=== PATIENT | male | born 1940 | race Caucasian/White ===

== ENCOUNTER 2016-10-30 13:14 | Inpatient (IN) | payer OTHER, MEDICARE ==
[~2016-10-30] VITALS: Ht 180.3 cm; Wt 97.2 kg
--- NOTE | 2016-10-30 13:15 | NUR ---
IRINEO FROM HOME FOR CP/EPIGASTRIC PAIN. PT STATES HE WAS WALKING IN THE [place] 10AM TODAY WHEN HE DEVELOPED 6/10 SUBSTERNAL CHEST PAIN. PT STATES HE'S BEEN HAVING "ASPIRIN STOMACHACHES" AND TOOK ROLAIDS. PAIN THEN RESOLVED. A COUPLE HOURS LATER PT WENT TO THE STORE AND PAIN RESUMED. 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 SEES A STAFF RADIATION THERAPIST AT [facility]
--- NOTE | 2016-10-30 13:29 | ED CARDIAC/CP/PALPITATIONS ---
See Addendum History of Present Illness General Chief Complaint: Chest Pain Stated Complaint: CHEST PAIN Source: patient, old records Exam Limitations: no limitations Vital Signs & Intake/Output Vital Signs & Intake/Output Vital Signs Date Time Temp Pulse Resp B/P Pulse O2 O2 Flow FiO2 Ox Delivery Rate 10/30 1546 99.4 98 20 141/71 96 Room Air 10/30 1357 98 Nasal 4.0L Cannula 10/30 1335 98.3 10/30 1315 74 16 141/75 94 Room Air Allergies Coded Allergies: No Known Allergies (10/30/16) Reconcile Medications Amlodipine (Norvasc) 2.5 MG TABLET 1 TAB PO DAILY BP (Reported) Aspirin (Ecotrin*) 325 MG TABLET.DR 2 TAB PO DAILY HEART/BLOOD/PAIN (Reported ) Aspirin (Aspirin*) 325 MG TABLET 1 TAB PO DAILY HEART/BLOOD/PAIN (Reported) Atorvastatin Calcium (Lipitor) 40 MG TABLET 1 TAB PO DAILY CHOLESTEROL ( Reported) Cetirizine HCl (Zyrtec) 10 MG TABLET 1 TAB PO PRN ALLERGIES (Reported) Glucosamine HCl/Chondr Genao A Na (Glucosamine-Chondroitin Liq) 1,500 MG-1,200 MG/ 30 ML LIQUID 1 CAP PO BID SUPPLEMENT (Reported) Losartan Potassium (Cozaar) 25 MG TABLET 1 TAB PO DAILY BP (Reported) Metoprolol Succ XL (Toprol XL) 25 MG TAB 1 TAB PO DAILY HEART/BP (Reported) Multivitamin (Multi-Day Vitamins) 1 EACH TABLET 1 TAB PO DAILY SUPPLEMENT ( Reported) Nitroglycerin (Nitrostat) (Unknown Strength) TAB.SUBL (Unknown Dose) SL AD PRN CHEST PAIN (Reported) 1st sign of attack; may repeat every 5 minutes until relief; if pain persists after 3 tablets in 15 minutes, prompt medical att Ubidecarenone (Co Q-10) 100 MG CAPSULE 1 CAP PO DAILY SUPPLEMENT (Reported) Vit A,C & E/Lutein/Minerals (Ocuvite With Lutein Tablet) 1,000-60-2 TABLET 1 TAB PO DAILY SUPPLEMENT (Reported) Triage Nurses Notes Reviewed? yes HPI: Patient presents for evaluation of substernal and epigastric pain. Patient states that he has had abdominal pain from the epigastric region to the lower abdomen for almost 2 weeks now. He states it is a constant aching discomfort. He states he began having pain while walking in the [place]. He took Rolaids and drank water without much relief. He states it worsened at a grocery store and then worse still at home. He did crunches at the gym yesterday and today but this didn't seem to have impacted on his pain. He has had episodic dyspnea and diaphoresis but no diarrhea or dysuria. He states he takes "a lot of aspirin" for ankle leg and hip pains. Past History Medical History Any Pertinent Medical History? see below for history Surgical History Surgical History: non-contributory Psychosocial History Illicit Drug Use: denies illicit drug use Family History Hx Contributory? No Review of Systems Review of Systems Constitutional: Reports: no symptoms. EENTM: Reports: no symptoms. Respiratory: Reports: no symptoms. Cardiovascular: Reports: no symptoms. GI: Reports: see HPI. Genitourinary: Reports: no symptoms. Musculoskeletal: Reports: no symptoms. Skin: Reports: no symptoms. Neurological/Psychological: Reports: no symptoms. Hematologic/Endocrine: Reports: no symptoms. Immunologic/Allergic: Reports: no symptoms. All Other Systems: Reviewed and Negative Physical Exam Physical Exam Cardiovascular: see below Comments: Gen.: Well-nourished, well-developed, no acute respiratory distress. Head: Normocephalic, atraumatic. Eyes: Normal inspection bilaterally Ears: Normal inspection bilaterally Nose: Normal inspection Throat/mouth : Moist mucosa Neck: Supple, full range of motion, no goiter Heart: Regular rate and rhythm, no murmurs rubs or gallops Lungs: Clear to auscultation bilaterally with normal air entry Chest: Nontender Back: Normal range of motion Abdomen: Soft, diffuse severe tenderness without rebound or guarding, nondistended, normal bowel sounds Extremities: Normal range of motion grossly, equal radial pulses, no cyanosis clubbing or edema Neurologic: Cranial nerves grossly intact, speech is clear Skin: warm and dry Psychiatric: Calm, cooperative, no apparent delusions or hallucinations Core Measures ACS in differential dx? No Severe Sepsis Present: No Septic Shock Present: No Progress Differential Diagnosis: pancreatitis, gastritis, peptic ulcer disease, small bowel obstruction, perforated viscus, diverticulitis Plan of Care: Orders Procedure Date/time Status Nothing by Mouth 10/30 D Active Add-on Test (ER Only) 10/30 1355 Active LIPASE 10/30 1348 Complete URINALYSIS 10/[address] ABD & PELVIS ANGIOGRAM 10/30 1346 Active TROPONIN LEVEL 10/30 1345 Complete COMPREHENSIVE METABOLIC PANEL 10/30 1345 Complete CBC WITHOUT DIFFERENTIAL 10/30 134 Complete EKG 10/30 1315 Active Laboratory Tests 10/30/16 1348: Anion Gap 8, Estimated GFR > 60, BUN/Creatinine Ratio 20.0, Glucose 112 H, Calcium 9.6, Total Bilirubin 0.8, AST 27, ALT 38, Alkaline Phosphatase 89, Troponin I < 0.01, Total Protein 6.7, Albumin 3.7, Globulin 3.0, Albumin/ Globulin Ratio 1.2, Lipase 345 H, CBC w Diff NO MAN DIFF REQ, RBC 4.92, MCV 94.5 H, MCH 32.0 H, RDW 12.8, MPV 6.8 L, Gran % 67.0, Lymphocytes % 27.9, Monocytes % 2.2, Eosinophils % 2.2, Basophils % 0.7, Absolute Granulocytes 3.8, Absolute Lymphocytes 1.6, Absolute Monocytes 0.1 L, Absolute Eosinophils 0.1, Absolute Basophils 0, PUBS MCHC 33.9 10/30/16 1346: Lipase Cancelled, CBC w Diff Cancelled, WBC Cancelled, RBC Cancelled, Hgb Cancelled, Hct Cancelled, MCV Cancelled, MCH Cancelled, RDW Cancelled, Plt Count Cancelled, MPV Cancelled, PUBS MCHC Cancelled Initial ED EKG: NSR, rate (69), LBBB Comments: 10/30/2016 3:46:[address]'s ct scan reveals 1) aorta normal, dilated esophagus filled with fluid, stomach fluid, mesenteric congestion and omental caking, small free air. 10/30/2016 4:08:45 PM surgery is being paged and I have updated Javier on his test results. he has no specific requests at this time. 10/30/2016 4:29:18 PM patient's case discussed with Dr. Hamilton will evaluate the patient in the emergency department shortly. 10/30/2016 6:01:32 PM patient has been evaluated by Dr. Hamilton, an NG tube will be placed and the patient will be admitted for clinical monitoring. Departure Departure Disposition: HOME OR SELF CARE Condition: Stable Clinical Impression Primary Impression: Perforated viscus Referrals: UNKNOWN Departure Forms: Customer Survey General Discharge Information Admission Note Spoke With: EDUARDA MARTINEZ,ARIA Harvey Documentation of Exam: Documentation of any treatments & extenuating circumstances including Concerns Regarding Discharge (functional status, medication knowledge or non-compliance, living conditions, etc.) that warrant an admission rather than observation: Patient has a perforated viscus of unclear etiology. He is at very high risk of peritonitis sepsis septic shock and . He now requires careful clinical monitoring of abdominal exam and vital signs. He requires IV antibiotic prophylaxis to prevent secondary peritonitis. He needs to be kept nothing by mouth to decompress and rest the GI tract. He will be at risk of dehydration if IV fluids are not provided. He therefore cannot be treated as an outpatient and requires hospitalization for multiple day stay. If his clinical course deteriorates surgical intervention should be considered. Critical Care Note Critical Care Note Critical Care Time: 30-74 min
--- NOTE | 2016-10-30 13:56 | NUR ---
PT STATES PAIN IS MORE FROM HIS STERNUM DOWN TO HIS BELT LINE, NOT SPECIFICALLY IN CHEST AREA
[2016-10-30 13:57] LABS: ABSOLUTE BASOPHIL COUNT 0 /CUMM (0.0-0.2); ABSOLUTE EOSINOPHIL COUNT 0.1 /CUMM (0.0-0.7); ABSOLUTE GRANULOCYTE CT 3.8 /CUMM (1.4-6.5); ABSOLUTE LYMPH COUNT 1.6 /CUMM (1.2-3.4); ABSOLUTE MONOCYTE COUNT 0.1 /CUMM (0.10-0.60); BASOPHIL % 0.7 % (0.0-2.0); EOSINOPHIL % 2.2 % (0-5); HEMATOCRIT 46.5 % (42-52); MEAN CORPUSCULAR HGB CONC 33.9 G/DL (33.0-37.0); MEAN CORPUSCULAR VOLUME 94.5 FL (80.0-94.0); MEAN PLATELET VOLUME 6.8 FL (7.4-10.4); PLATELET COUNT 218 /CUMM (130-400); RBC DISTRIBUTION WIDTH 12.8 % (11.5-14.5); RED BLOOD CELL CT 4.92 /CUMM (4.70-6.10); WHITE BLOOD CELL COUNT 5.7 /CUMM (4.8-10.8)
--- NOTE | 2016-10-30 15:09 | NUR ---
PT AT CT SCAN
--- NOTE | 2016-10-30 15:41 | NUR ---
AWAITING CT RESULTS. PT MADE AWARE. ADVISED TO STAY NPO AT THIS TIME
--- NOTE | 2016-10-30 16:48 | CT SCAN REPORT ---
EXAMINATION: CT ANGIOGRAM CHEST, ABDOMEN, AND PELVIS CLINICAL INFORMATION: 75-year-old male patient with lower substernal chest pain and history of coronary artery disease. COMPARISON: None. TECHNIQUE: Multiple axial images were obtained through the chest after the administration of 50 mL of Optiray 320 intravenous contrast. Coronal and sagittal reformats obtained at the acquisition workstation. DLP: 1054.70 mGy-cm. FINDINGS: VASCULAR: The thoracic aorta and abdominal aorta are normal in caliber. There is no evidence of dissection. The ascending aorta measures 3.4 cm in diameter. The left vertebral artery arises separately from the aortic arch. Otherwise branching is conventional. There is no apparent pulmonary embolism. The SMA is patent although there is a calcific plaque at its origin. Both single renal arteries are patent. The ROB is patent. Although this study was obtained in the arterial phase of the injection, there is early filling of the portal venous system. There could well be intraluminal thrombus formation in the superior mesenteric vein starting at the junction with the splenic vein. The intrahepatic portal veins are not well opacified and may be thrombosed. Doppler examination of the portal venous system would be able to evaluate this possibility. NONVASCULAR: Mechanical Equipment Test Engineer view demonstrates a tubular air-filled viscus in the mid abdomen that corresponds to an abnormal transverse colon. Subsegmental areas of atelectasis involve both lower lobes. The remainder of the lung salcedo is clear. There is no pleural effusion. The heart is normal in size. There is abnormal dilatation of the entire esophagus which distally is entirely fluid filled. The cause for this apparent obstruction is not apparent. The heart is normal in size. There is no adenopathy in the mediastinum or either hilar region. There is no lymphadenopathy in either axilla. Liver is normal in size and contour. However, the hepatogram is mildly heterogeneous. This could be secondary to the presumed portal vein thrombosis. No focal masses are seen. The gallbladder is normal. There are bubbles of free air in the gallbladder fossa. The pancreas is normal. The spleen is not enlarged. Both adrenal glands and both kidneys are normal. A 1.7 cm diameter cortical cyst is seen in the midportion of the left kidney. There is no perinephric stranding. Of significance is small volume ascites and bubbles of free air in the upper abdomen. With regard to the gastrointestinal tract, the transverse colon is tubular and strictured with wall thickening. A segment of the sigmoid colon is also thickened and relatively strictured with adjacent edema. Series 601, image 38. The ascending and descending colon are collapsed but demonstrate some mucosal enhancement. In addition, the gastric antrum is collapsed and there is mucosal enhancement. The transverse mesocolon is edematous. There is edema or infiltration of the greater omentum. The actual source of the observed free intraperitoneal air is not readily apparent. There is generalized edema of the small intestine and the mesentery which could be related to the possible partial thrombosis of the portal venous circulation. It is difficult to localize the appendix. Bladder is normal. There is enlargement of the central zone of the prostate gland. Multilevel degenerative disc disease is present. IMPRESSION: 1. The free intraperitoneal air implies perforated viscus. Low volume ascites. 2. Signs of colitis with skip areas of more severe involvement. (Transverse and sigmoid colon). 3. Abnormal gastric antrum with lack of distensibility and edema of the wall. 4. Edematous small bowel mesentery and greater omentum. Peritoneal implants may be present. Series 2, image 455. 5. Abnormal dilatation of the esophagus from thoracic inlet to the GE junction. There is fluid and air distention. Question etiology. 6. Findings that would suggest partial portal vein thrombosis. 7. Normal aorta. Raw data will be sent to the 3-D lab for further processing and an addendum will be dictated to this report. This critical result was discussed with Dr. Jai Banuelos at 3:42 p.m. on October 30 and it was ascertained that the content and urgency of the report was understood at the time of direct communication.
[2016-10-30] MEDS ORDERED: COZAAR25 M1 PO (17:12)
[2016-10-30] MEDS ORDERED: NORVASC2.5 M1 PO (17:12)
[2016-10-30] MEDS ORDERED: LIPITOR40 M1 PO (17:12)
[2016-10-30] MEDS ORDERED: TOPROL XL25 M1 PO (17:12)
[2016-10-30] MEDS ORDERED: MULTI-DAY VITA1 EACH PO (17:14)
[2016-10-30] MEDS ORDERED: GLUCOSAMINE-CH480 ML PO (17:14)
[2016-10-30] MEDS ORDERED: OCUVITE WITH L1 EACH PO (17:14)
[2016-10-30] MEDS ORDERED: ASPIRIN EC325 M2 PO (17:16)
[2016-10-30] MEDS ORDERED: ASPIRIN325 M2 PO (17:16)
[2016-10-30] MEDS ORDERED: CO Q-10100 MG PO (17:17)
[2016-10-30] MEDS ORDERED: ZYRTEC10 M3 PO (17:17)
[2016-10-30] MEDS ORDERED: NITROSTAT0.4 M1 SL (17:18)
--- NOTE | 2016-10-30 18:00 | NUR ---
NGT INSERTED BY PA STUDENT PER DR. MUSA'S VERBAL ORDER. 250ML THIN GREEN GASTRIC OUTPUT. PT TOLERATED PROCEDURE WELL
--- NOTE | 2016-10-30 19:02 | History & Physical Pre-Op ---
General Information and HPI History of Present Illness: CC: abdominal pain HPI: 75-year-old nondiabetic nonsmoker very active exercises regularly, earlier today had sudden onset of upper abdominal pain he was nauseous lady clammy felt dizzy pain was worse on movement constant didn't radiate to his back he wasn't exerting at the time in particular came to the ER imaging was done showing free air surgical consult was called. 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 Actually he thought this was an aspirin stomachache, , which he sometimes gets "you know when you take it on an empty stomach." No family history of GI cancer no recent weight loss or changes in bowel habits or appetite, he's followed by [facility] but no recent heart issues he says his last echo was very normal, denies any bleeding per rectum or per vomiting. I've reviewed the [facility]. No history of GERD, PUD, bleeding problems, or issues with anesthesia. Family history negative for diabetes or cancer, surgical history includes radical hernia repair with mesh. Allergies/Medications Allergies: Coded Allergies: No Known Allergies (10/30/16) Home Med list Amlodipine (Norvasc) 2.5 MG TABLET 1 TAB PO DAILY BP (Reported) Aspirin (Ecotrin*) 325 MG TABLET.DR 2 TAB PO DAILY HEART/BLOOD/PAIN (Reported ) Aspirin (Aspirin*) 325 MG TABLET 1 TAB PO DAILY HEART/BLOOD/PAIN (Reported) Atorvastatin Calcium (Lipitor) 40 MG TABLET 1 TAB PO DAILY CHOLESTEROL ( Reported) Cetirizine HCl (Zyrtec) 10 MG TABLET 1 TAB PO PRN ALLERGIES (Reported) Glucosamine HCl/Chondr Genao A Na (Glucosamine-Chondroitin Liq) 1,500 MG-1,200 MG/ 30 ML LIQUID 1 CAP PO BID SUPPLEMENT (Reported) Losartan Potassium (Cozaar) 25 MG TABLET 1 TAB PO DAILY BP (Reported) Metoprolol Succ XL (Toprol XL) 25 MG TAB 1 TAB PO DAILY HEART/BP (Reported) Multivitamin (Multi-Day Vitamins) 1 EACH TABLET 1 TAB PO DAILY SUPPLEMENT ( Reported) Nitroglycerin (Nitrostat) (Unknown Strength) TAB.SUBL (Unknown Dose) SL AD PRN CHEST PAIN (Reported) 1st sign of attack; may repeat every 5 minutes until relief; if pain persists after 3 tablets in 15 minutes, prompt medical att Ubidecarenone (Co Q-10) 100 MG CAPSULE 1 CAP PO DAILY SUPPLEMENT (Reported) Vit A,C & E/Lutein/Minerals (Ocuvite With Lutein Tablet) 1,000-60-2 TABLET 1 TAB PO DAILY SUPPLEMENT (Reported) Past History Surgical History Pertinent Surgical History: non-contributory Past Family/Social History Psychosocial History ETOH Use: occasional use Illicit Drug Use: denies illicit drug use Review of Systems Review of Systems: Constitutional: No fever, sweats or weight loss ENMT: No sore throat Cardiovascular: No chest pain, palpitations or leg swelling Respiratory: No shortness of breath, cough, or sputum or dyspnea on exertion GI: No GERD or bleeding per rectum : No dysuria or hematuria Musculoskeletal: No new muscle weakness, bone or joint pain Skin / Breast: No jaundice, rashes or itching Psychiatric: No history of drug or alcohol abuse no depression or anxiety Hematologic / lymphatic system: No problems with excessive bleeding, bruising, or blood clots Exam & Diagnostic Data Last 24 Hrs of Vital Signs/I&O I reviewed Vital Signs Date Time Temp Pulse Resp B/P Pulse O2 O2 Flow FiO2 Ox Delivery Rate 10/30 1546 99.4 98 20 141/71 96 Room Air 10/30 1357 98 Nasal 4.0L Cannula 10/30 1335 98.3 10/30 1315 74 16 141/75 94 Room Air I reviewed Intake & Output 10/30 1600 10/30 0800 10/30 0000 Intake Total Output Total Balance Patient 210 lb Weight Physical Exam: Constitutional: pleasant, no acute distress, conversant Eyes: sclera anicteric ENMT: ears and nose atraumatic, moist mucous membranes, good dentition, no lip lesions Neck: Supple, trachea is midline, no cervical or supraclavicular adenopathy and no palpable thyromegaly Cardiovascular: S1, S2, no murmurs, no peripheral edema Respiratory: clear to auscultation with normal respiratory effort and no intercostal retractions GI: abdomen soft, nontender, slightly distended, no palpable hepatosplenomegaly Extremities / lymphatics: symmetrically warm, free range of motion no peripheral edema, no cervical, supraclavicular, axillary, or inguinal adenopathy Musculoskeletal: Normal gait and station, no digital cyanosis, good muscle strength and tone no atrophy, motor grossly 5 out of 5 throughout Skin: no jaundice, no rashes warm, nondiaphoretic, no areas of erythema or induration Psychiatric: mood and affect are appropriate and alert and oriented to person place and time Last 24 Hrs of Labs/Demetrius: I reviewed Laboratory Tests 10/30/16 1348: Anion Gap 8, Estimated GFR > 60, BUN/Creatinine Ratio 20.0, Glucose 112 H, Calcium 9.6, Total Bilirubin 0.8, AST 27, ALT 38, Alkaline Phosphatase 89, Troponin I < 0.01, Total Protein 6.7, Albumin 3.7, Globulin 3.0, Albumin/ Globulin Ratio 1.2, Lipase 345 H, CBC w Diff NO MAN DIFF REQ, RBC 4.92, MCV 94.5 H, MCH 32.0 H, RDW 12.8, MPV 6.8 L, Gran % 67.0, Lymphocytes % 27.9, Monocytes % 2.2, Eosinophils % 2.2, Basophils % 0.7, Absolute Granulocytes 3.8, Absolute Lymphocytes 1.6, Absolute Monocytes 0.1 L, Absolute Eosinophils 0.1, Absolute Basophils 0, PUBS MCHC 33.9 10/30/16 1346: Lipase Cancelled, CBC w Diff Cancelled, WBC Cancelled, RBC Cancelled, Hgb Cancelled, Hct Cancelled, MCV Cancelled, MCH Cancelled, RDW Cancelled, Plt Count Cancelled, MPV Cancelled, PUBS MCHC Cancelled Assessment/Plan Assessment/Plan: Studies: I reviewed the CT scan on PACS myself from today shows a very small amount of scattered free air under the left hemidiaphragm and one dot by the gallbladder, nowhere else, there is also min free fluid, and parts of the small bowel appear a little edematous. Impression is probable perforated gastric ulcer related to the significant intake of aspirin, I told him that these usually are more distal and one has to worry more about an occult malignancy in a gastric one but for now it's important to treat the acute problem, the peritonitis which is usually surgical, explained the Jason patch, but he stable has minimal tenderness no fever no significant tachycardia or leukocytosis so I recommend nonoperative management with a close eye / low threshold to bring to the operating room should he worsen such as fever or tachycardia increased abdominal pain, because overall it is a life-threatening situation. In the meantime we'll place NG tube for decompression, no food, start Carafate suspension, IV antibiotics, IV fluids, serial exams serial labs sometimes we need to reimage, it depends. I also explained to him that after this, he will need continued workup often with an EGD, to confirm the cause because that we will need to be treated as well. As Ranked By This Provider Problem List: 1. Perforated viscus
--- NOTE | 2016-10-30 19:15 | NUR ---
PER SURGICAL PA SARAH, NO CONFIRMATION XRAY NEEDED AT THIS TIME
--- NOTE | 2016-10-30 20:50 | NUR ---
PT HAS BED #189-1
--- NOTE | 2016-10-30 20:55 | NUR ---
PT RESTING COMFORTABLY. STATES THAT HIS PAIN IS MUCH BETTER. NGT TO CONTINUOUS LOW WALL SUCTION
--- NOTE | 2016-10-30 21:18 | NUR ---
REPORT GIVEN TO KEIRY GARCIA
[2016-10-30 21:58] VITALS: BP 118/68
--- NOTE | 2016-10-31 07:50 | PN- General Surgery ---
See Addendum Subjective Subjective: Reports feeling better overall with less pain and soreness. Feels like his breathing is better. No chest pains. Denies flatus. No bm. Denies chills / sweats. Objective Vital Signs and I&Os Vital Signs Date Time Temp Pulse Resp B/P Pulse O2 O2 Flow FiO2 Ox Delivery Rate 10/308 98.2 106 18 118/68 93 Room Air 10/30 2054 99.4 104 16 123/70 92 Room Air 10/30 1546 99.4 98 20 141/71 96 Room Air 10/30 1357 98 Nasal 4.0L Cannula 10/30 1335 98.3 10/30 1315 74 16 141/75 94 Room Air Intake & Output 10/31 0800 10/31 0000 10/30 1600 10/30 0800 10/30 0000 10/29 1600 Intake Total 800 100 Output Total 200 551 Balance 600 -451 Intake, IV 800 100 Intake, Oral 0 0 Output, 200 550 Gastric Drainage Output, Other 1 Patient 213 lb 210 lb Weight Physical Exam: General - alert & oriented x 3. comfortable. no acute distress. Lungs - clear bilaterally. no w/r/r. Cardiac - s1s2. slightly tachy. reg. Abdomen - soft. no bowel sounds appreciated. diffusely tender with guarding. ng tube with bilious drainage. Extremities - warm bilaterally. no c/c/e. calves soft and nontender b/l. Results Last 48 Hours of Labs: Laboratory Tests 10/31 10/30 10/30 0640 1348 1346 Chemistry Sodium (137 - 145 mmol/L) Pending 140 Potassium (3.5 - 5.1 mmol/L) Pending 3.7 Chloride (98 - 107 mmol/L) Pending 100 Carbon Dioxide (22 - 30 mmol/L) Pending 31 H Anion Gap (5 - 16) Pending 8 BUN (9 - 20 mg/dL) Pending 16 Creatinine (0.7 - 1.2 mg/dL) Pending 0.8 Estimated GFR (>60 ml/min) > 60 BUN/Creatinine Ratio (7 - 25 %) Pending 20.0 Glucose (65 - 99 mg/dL) 112 H Calcium (8.4 - 10.2 mg/dL) 9.6 Total Bilirubin (0.2 - 1.3 mg/dL) 0.8 AST (17 - 59 U/L) 27 ALT (21 - 72 U/L) 38 Alkaline Phosphatase (< 127 U/L) 89 Troponin I (<0.11 ng/ml) < 0.01 Total Protein (6.3 - 8.2 g/dL) 6.7 Albumin (3.5 - 5.0 g/dL) 3.7 Globulin (1.9 - 4.2 gm/dL) 3.0 Albumin/Globulin Ratio (1.1 - 2.2 %) 1.2 Lipase (23 - 300 U/L) 345 H Cancelled Hematology CBC w Diff Pending NO MAN DIFF REQ Cancelled WBC (4.8 - 10.8 /CUMM) Pending 5.7 Cancelled RBC (4.70 - 6.10 /CUMM) Pending 4.92 Cancelled Hgb (14.0 - 18.0 G/DL) Pending 15.7 Cancelled Hct (42 - 52 %) Pending 46.5 Cancelled MCV (80.0 - 94.0 FL) Pending 94.5 H Cancelled MCH (27.0 - 31.0 PG) Pending 32.0 H Cancelled RDW (11.5 - 14.5 %) Pending 12.8 Cancelled Plt Count (130 - 400 /CUMM) Pending 218 Cancelled MPV (7.4 - 10.4 FL) Pending 6.8 L Cancelled Gran % (42.2 - 75.2 %) 67.0 Lymphocytes % (20.5 - 51.1 %) 27.9 Monocytes % (1.7 - 9.3 %) 2.2 Eosinophils % (0 - 5 %) 2.2 Basophils % (0.0 - 2.0 %) 0.7 Absolute Granulocytes (1.4 - 6.5 /CUMM) 3.8 Absolute Lymphocytes (1.2 - 3.4 /CUMM) 1.6 Absolute Monocytes (0.10 - 0.60 /CUMM) 0.1 L Absolute Eosinophils (0.0 - 0.7 /CUMM) 0.1 Absolute Basophils (0.0 - 0.2 /CUMM) 0 PUBS MCHC (33.0 - 37.0 G/DL) Pending 33.9 Cancelled Assessment/Plan Assessment/Plan This 75 year old white male admitted with small amount of free air and abdominal pain, which seems to be improving overall npo / ngt / ivf pain control as ordered continue iv unasyn for intra-abdominal infection / perforation f/u labs protonix iv bid carafate as ordered serial exams hep sc - dvt ppx will d/w Core Measures/Miscellaneous Venous Thromboembolism VTE Risk Factors: Age > 40, Surgery VTE Contraindications: No Contraindications VTE Prophylaxis Ordered Inpt Mech & Pharm VTE Diagnosis: No Beta Alessandro Is Beta Alessandro a Home Med? Yes If Yes, Was This Ordered Today? Yes Antibiotics Is Patient on Antibiotics? Yes If Yes: infection
[2016-10-31 08:00] VITALS: BP 120/66
[2016-10-31 08:17] LABS: ABSOLUTE BASOPHIL COUNT 0 /CUMM (0.0-0.2); ABSOLUTE EOSINOPHIL COUNT 0 /CUMM (0.0-0.7); ABSOLUTE GRANULOCYTE CT 14.4 /CUMM (1.4-6.5); ABSOLUTE LYMPH COUNT 0.7 /CUMM (1.2-3.4); ABSOLUTE MONOCYTE COUNT 0.9 /CUMM (0.10-0.60); BASOPHIL % 0 % (0.0-2.0); EOSINOPHIL % 0 % (0-5); GRANULOCYTE % 89.6 % (42.2-75.2); MEAN CORPUSCULAR HGB 32.1 PG (27.0-31.0); MEAN CORPUSCULAR HGB CONC 33.5 G/DL (33.0-37.0); MEAN PLATELET VOLUME 7.8 FL (7.4-10.4); PLATELET COUNT 168 /CUMM (130-400); RBC DISTRIBUTION WIDTH 13.4 % (11.5-14.5); RED BLOOD CELL CT 4.33 /CUMM (4.70-6.10)
[2016-10-31 09:06] LABS: HEMATOCRIT 41.5 % (42-52)
[2016-10-31 15:30] VITALS: BP 118/64
[2016-10-31 22:00] VITALS: BP 124/66
[2016-11-01 00:29] VITALS: BP 118/62
--- NOTE | 2016-11-01 07:00 | PN- General Surgery ---
See Addendum Subjective Subjective: The patient was seen this morning. He reports that his pain is slightly improved from the day prior. He denies any nausea or vomiting and reports having a loose bowel movement last night. He has no other complaints at the current time and denies any chest pain or difficulty breathing. Objective Vital Signs and I&Os Vital Signs Date Time Temp Pulse Resp B/P Pulse O2 O2 Flow FiO2 Ox Delivery Rate 11/01 0029 98.8 78 18 118/62 92 Room Air 10/31 2200 98.9 80 16 124/66 91 Room Air 10/31 2157 80 124/66 10/31 1600 Room Air 10/31 1530 99.0 82 18 118/64 92 Room Air 10/31 0936 87 120/66 10/31 0800 98.2 87 20 120/66 92 Room Air Intake & Output 11/01 0811/01 0000 10/31 1600 10/31 0800 10/31 0000 10/30 1600 Intake Total 800 1170 800 100 Output Total 575 300 200 551 Balance 225 870 600 -451 Intake, IV 800 800 800 100 Intake, Oral 0 0 0 Intake, Other 370 Number 0 Bowel Movements Output, 25 200 550 Gastric Drainage Output, Other 1 Output, Urine 550 300 Patient 213 lb 210 lb Weight Physical Exam: Gen.: Alert and in no obvious distress Skin: Warm and dry Abdomen: Soft, nondistended, moderate generalized tenderness which is slightly increased in the epigastric region with some mild rebound but no guarding. Bowel sounds are positive. Extremities: Bilateral lower extremities are warm without calf tenderness or significant edema. Assessment/Plan Assessment/Plan Assessment: 75-year-old male with perforated viscus currently being treated conservatively. The patient subjectively feels improved from the day prior and he has remained afebrile Plan: Continue NG tube decompression and nothing by mouth IV hydration Protonix twice a day and Carafate IV antibiotics GI and DVT prophylaxis Out of bed and ambulate Follow-up morning laboratory studies Strict I's and O's Serial abdominal exams Core Measures/Miscellaneous Venous Thromboembolism VTE Risk Factors: Age > 40, Surgery VTE Contraindications: No Contraindications VTE Prophylaxis Ordered Inpt Mech & Pharm VTE Diagnosis: No Beta Alessandro Is Beta Alessandro a Home Med? Yes If Yes, Was This Ordered Today? Yes Antibiotics Is Patient on Antibiotics? Yes If Yes: infection
[2016-11-01 07:51] LABS: ABSOLUTE BASOPHIL COUNT 0 /CUMM (0.0-0.2); ABSOLUTE EOSINOPHIL COUNT 0.1 /CUMM (0.0-0.7); ABSOLUTE GRANULOCYTE CT 11.4 /CUMM (1.4-6.5); ABSOLUTE LYMPH COUNT 0.9 /CUMM (1.2-3.4); ABSOLUTE MONOCYTE COUNT 0.4 /CUMM (0.10-0.60); BASOPHIL % 0 % (0.0-2.0); EOSINOPHIL % 0.5 % (0-5); GRANULOCYTE % 89.5 % (42.2-75.2); HEMATOCRIT 38.9 % (42-52); MEAN CORPUSCULAR HGB CONC 33.4 G/DL (33.0-37.0); MEAN CORPUSCULAR VOLUME 95.8 FL (80.0-94.0); MEAN PLATELET VOLUME 7.7 FL (7.4-10.4); PLATELET COUNT 157 /CUMM (130-400); RBC DISTRIBUTION WIDTH 13.2 % (11.5-14.5); RED BLOOD CELL CT 4.06 /CUMM (4.70-6.10); WHITE BLOOD CELL COUNT 12.8 /CUMM (4.8-10.8)
[2016-11-01 08:00] VITALS: BP 140/70
[2016-11-01 16:25] VITALS: BP 118/74
[2016-11-01 23:32] VITALS: BP 130/70
--- NOTE | 2016-11-02 07:32 | PN- General Surgery ---
See Addendum Subjective Subjective: No complaints. Reports feeling better everyday. Passing flatus and moving bms. Out of bed twice yesterday without difficulty. No dizziness. No shortness of breath. No chest pains. Objective Vital Signs and I&Os Vital Signs Date Time Temp Pulse Resp B/P Pulse O2 O2 Flow FiO2 Ox Delivery Rate 11/01 2332 98.5 70 18 130/70 92 Room Air 11/01 2134 68 136/70 11/01 1625 98.1 82 18 118/74 91 Room Air 11/01 1600 96 Room Air 11/01 1001 78 140/70 11/01 1001 78 140/70 11/01 1001 78 140/70 11/01 0800 98.3 78 20 140/70 92 Intake & Output 11/02 0800 11/02 0000 11/01 1600 11/01 0800 11/01 0000 10/31 1600 Intake Total 800 850 700 790 016 8857 Output Total 425 350 75 400 575 300 Balance 375 500 625 400 225 870 Intake, IV 800 800 700 800 800 800 Intake, Oral 0 50 0 Intake, Other 370 Number 3 2 1 0 Bowel Movements Output, 25 50 75 25 Gastric Drainage Output, Urine 400 300 400 550 300 Patient 214 lb Weight Physical Exam: General - alert & oriented x 3. comfortable. no acute distress. Lungs - clear bilaterally. no w/r/r. Cardiac - s1s2. reg Abdomen - soft. bowel sounds appreciated. mild epigastric tenderness. nondistended. ng tube in place. Extremities - warm bilaterally. no c/c/e. calves soft and nontender b/l. Assessment/Plan Assessment/Plan This 75-year-old male with perforated viscus from likely sealed off gastric ulcer from aspirin use currently npo / ngt / ivf pain control as ordered, as needed hep sc - dvt ppx protonix bid / carafate oob/ambulation f/u labs continue iv unasyn for perforation / intra-abdominal infection will d/w Core Measures/Miscellaneous Venous Thromboembolism VTE Risk Factors: Age > 40, Surgery VTE Contraindications: No Contraindications VTE Diagnosis: No Beta Alessandro Is Beta Alessandro a Home Med? Yes If Yes, Was This Ordered Today? Yes Antibiotics Is Patient on Antibiotics? Yes If Yes: infection
[2016-11-02 07:52] VITALS: BP 130/70
[2016-11-02 08:34] LABS: ABSOLUTE BASOPHIL COUNT 0 /CUMM (0.0-0.2); ABSOLUTE EOSINOPHIL COUNT 0.3 /CUMM (0.0-0.7); ABSOLUTE GRANULOCYTE CT 6.1 /CUMM (1.4-6.5); ABSOLUTE MONOCYTE COUNT 0.4 /CUMM (0.10-0.60); BASOPHIL % 0.3 % (0.0-2.0); EOSINOPHIL % 3.7 % (0-5); GRANULOCYTE % 78.3 % (42.2-75.2); HEMATOCRIT 37.6 % (42-52); MEAN CORPUSCULAR HGB 32.3 PG (27.0-31.0); MEAN CORPUSCULAR HGB CONC 33.8 G/DL (33.0-37.0); MEAN CORPUSCULAR VOLUME 95.5 FL (80.0-94.0); MEAN PLATELET VOLUME 7.4 FL (7.4-10.4); PLATELET COUNT 139 /CUMM (130-400); RBC DISTRIBUTION WIDTH 12.9 % (11.5-14.5); RED BLOOD CELL CT 3.94 /CUMM (4.70-6.10); WHITE BLOOD CELL COUNT 7.8 /CUMM (4.8-10.8)
[2016-11-02 16:17] VITALS: BP 130/70
[2016-11-03 00:12] VITALS: BP 140/88
[2016-11-03 07:36] VITALS: BP 149/89
--- NOTE | 2016-11-03 08:21 | PN- General Surgery ---
See Addendum Subjective Subjective: No complaints. Tolerating sips of clears. No nausea. Continues to pass flatus. No more bms since starting clears. Out of bed ambulating, with some exertional dyspnea. Denies dizziness. No chest pains. Voiding well. Some persistent epigastric soreness. Objective Vital Signs and I&Os Vital Signs Date Time Temp Pulse Resp B/P Pulse O2 O2 Flow FiO2 Ox Delivery Rate 11/03 0636 97.8 68 16 149/89 92 Room Air 11/03 0012 97.9 70 20 140/88 93 03/04 0000 92 Room Air 11/02 2202 72 132/82 11/02 1617 97.0 70 20 130/70 92 11/02 0917 72 130/70 11/02 0916 72 130/70 11/02 0916 72 130/70 Intake & Output 11/03 1600 11/03 0800 11/03 0000 11/02 1600 11/02 0800 11/02 0000 Intake Total 850 1250 1400 800 850 Output Total 425 800 425 350 Balance 255 065 4311 375 500 Intake, IV 850 800 700 800 800 Intake, Oral 450 700 0 50 Number 1 1 3 Bowel Movements Output, 25 50 Gastric Drainage Output, Urine 425 800 400 300 Physical Exam: General - alert & oriented x 3. comfortable. no acute distress. Lungs - decreased breath sounds b/l bases. clear. Cardiac - s1s2. reg. Abdomen - soft. no bowel sounds appreciated. nontender. Extremities - warm bilaterally. no c/c/e. calves soft and nontender b/l. Assessment/Plan Assessment/Plan This 75-year-old male with perforated viscus from likely sealed off gastric ulcer from aspirin use tolerating sips of clears. d/c iv fluids ?advance diet f/u cxr re: exertional dyspnea encouraged IS hep sc - dvt ppx protonix bid / carafate oob/ambulation f/u labs continue iv unasyn for perforation / intra-abdominal infection will d/w Core Measures/Miscellaneous Venous Thromboembolism VTE Risk Factors: Age > 40, Surgery VTE Contraindications: No Contraindications VTE Diagnosis: No Beta Alessandro Is Beta Alessandro a Home Med? Yes If Yes, Was This Ordered Today? Yes Antibiotics Is Patient on Antibiotics? Yes If Yes: infection
[2016-11-03 08:41] LABS: ABSOLUTE BASOPHIL COUNT 0 /CUMM (0.0-0.2); ABSOLUTE EOSINOPHIL COUNT 0.4 /CUMM (0.0-0.7); ABSOLUTE LYMPH COUNT 1.1 /CUMM (1.2-3.4); ABSOLUTE MONOCYTE COUNT 0.5 /CUMM (0.10-0.60); BASOPHIL % 0.3 % (0.0-2.0); EOSINOPHIL % 7.3 % (0-5); GRANULOCYTE % 66.7 % (42.2-75.2); HEMATOCRIT 38.2 % (42-52); MEAN CORPUSCULAR HGB 31.9 PG (27.0-31.0); MEAN CORPUSCULAR HGB CONC 33.3 G/DL (33.0-37.0); MEAN CORPUSCULAR VOLUME 95.7 FL (80.0-94.0); MEAN PLATELET VOLUME 7.9 FL (7.4-10.4); PLATELET COUNT 150 /CUMM (130-400); RED BLOOD CELL CT 3.99 /CUMM (4.70-6.10)
--- NOTE | 2016-11-03 12:22 | RADIOLOGY REPORT ---
EXAMINATION: XR PORTABLE CHEST CLINICAL INFORMATION: Dyspnea on exertion COMPARISON: CT scan of October 30, 2016 TECHNIQUE: Portable AP portable view of the chest was obtained. FINDINGS: No significant abnormality is noted involving the heart, lungs, mediastinum, bony thorax or soft tissues. There are small lung volumes. IMPRESSION: No significant acute parenchymal disease. Small lung volumes.
[2016-11-03 16:11] VITALS: BP 146/82
[2016-11-03 22:58] VITALS: BP 144/80
[2016-11-04 07:50] VITALS: BP 162/80
--- NOTE | 2016-11-04 09:28 | PN- General Surgery ---
See Addendum Subjective Subjective: No complaints. Tolerating clears. No nausea. positive flatus. + bms -loose. Out of bed ambulating Voiding well. Some persistent epigastric soreness. Objective Vital Signs and I&Os Vital Signs Date Time Temp Pulse Resp B/P Pulse O2 O2 Flow FiO2 Ox Delivery Rate 11/04 0750 97.6 70 20 162/80 94 Room Air 11/03 2258 68 16 144/80 100 Room Air 03/ 2238 98.0 11/03 2140 68 144/80 03 1611 98.1 73 16 146/82 92 Room Air 11/03 1400 Room Air 11/03 1000 149/89 11/03 1000 149/89 11/03 0959 149/89 Intake & Output 11/04 1600 11/04 0800 11/04 0000 11/03 1600 11/03 0800 / 0000 Intake Total 200 730 629 386 6823 Output Total 325 300 425 800 Balance -125 430 820 425 450 Intake, IV 200 10 100 850 800 Intake, Oral 720 720 450 Number 2 1 Bowel Movements Output, Urine 325 300 425 800 Physical Exam: Pt examined by Dr Hamilton General: alert and oriented times three chest: clear anteriorly bilaterally, RRR Abd: soft, good bs, nondistended, nontender Ext: warm, no edema Current Medications: Current Medications Sig/Johnathon Start time Last Medication Dose Route Stop Time Status Admin Amlodipine Besylate 2.5 MG DAILY 10/31 1000 AC 11/03 PO 1000 Ampicillin Sodium/ 3,000 MG Q6 10/30 2359 AC 11/04 Sulbactam Sodium IV 0619 Sodium Chloride 100 ML Atorvastatin Calcium 40 MG 1700 10/31 1700 AC 11/03 PO 1652 Heparin Sodium 5,000 UNIT Q8 10/30 2199 AC 11/04 (Porcine) SC 0619 Loratadine 10 MG DAILY 10/31 1000 AC 11/03 PO 0959 Losartan Potassium 25 MG DAILY 10/31 1000 AC 11/03 PO 0959 Metoprolol Tartrate 12.5 MG BID 10/30 2199 AC 11/03 PO 2140 Morphine Sulfate 2 MG Q3P PRN 10/30 1900 DC IV Morphine Sulfate 4 MG Q3P PRN 10/30 1900 DC IV Ondansetron HCl 4 MG Q8P PRN 10/30 1845 AC IV Oxycodone/ 1 TAB Q4P PRN 11/04 0930 UNVr Acetaminophen PO Pantoprazole Sodium 40 MG BID 10/30 2200 AC 11/03 IV 2140 Phenol 2 SPRAY Q2P PRN 11/01 1415 AC EXT Sucralfate 1 GM Q8 10/30 2200 AC 11/04 PO 0618 Assessment/Plan Assessment/Plan 75 yo male with per viscous, medically managed improving without any signs or symptoms at this time of progressing disease advance to full liquid diet - instructed pt to take it slow hep sc for dvt ppx continue carafate/protonix iv at this time continue antibiotics encourage ambulation/incentive spirometer Core Measures/Miscellaneous Venous Thromboembolism VTE Risk Factors: Age > 40, Surgery VTE Contraindications: No Contraindications VTE Diagnosis: No Beta Alessandro Is Beta Alessandro a Home Med? Yes If Yes, Was This Ordered Today? Yes Antibiotics Is Patient on Antibiotics? Yes If Yes: infection
--- NOTE | 2016-11-04 14:30 | NUR ---
NOTED ON RIGHT FOREARM THAT PATIENT HAS RED/HOT/SWOLLEN AREA; APPEARS TO BE AROUND PREVIOUS IV SITE IN RAC; DISCUSSED WITH ONCOMING RN TO FOLLOW UP WITH SURGICAL PA
[2016-11-04 16:16] VITALS: BP 130/68
[2016-11-04 17:37] VITALS: BP 156/86
--- NOTE | 2016-11-04 18:56 | NUR ---
LATE ENTRY, TRANSFER NOTE- PT ARRIVED FROM [address] [place] [address]. A/O X 3, ON RA, LUNGS CLEAR, ABD SOFTLY DISTENDED, +BS, +FLATUS, PER PT +BM TODAY. DENIES ABD PAIN, DENIES N/V. SKIN INTACT. SMALL AREA OF REDNESS/WARMTH/EDEMA NOTED TO INNER RIGHT ELBOW, PT STATES THIS WAS AN PRIOR IV SITE. DENIES PAIN TO AREA. WARM COMPRESS APPLIED. INDEP AROUND ROOM. ORIENTED TO ROOM AND USE OF CALL NEVAREZ. WILL CONTINUE TO MONITOR.
[2016-11-04 21:55] VITALS: BP 140/78
[2016-11-05 07:05] VITALS: BP 134/72
[2016-11-05 08:54] LABS: ABSOLUTE BASOPHIL COUNT 0 /CUMM (0.0-0.2); ABSOLUTE EOSINOPHIL COUNT 0.4 /CUMM (0.0-0.7); ABSOLUTE GRANULOCYTE CT 5.3 /CUMM (1.4-6.5); ABSOLUTE LYMPH COUNT 1.2 /CUMM (1.2-3.4); ABSOLUTE MONOCYTE COUNT 0.7 /CUMM (0.10-0.60); BASOPHIL % 0.3 % (0.0-2.0); EOSINOPHIL % 5.5 % (0-5); GRANULOCYTE % 69.5 % (42.2-75.2); HEMATOCRIT 41.1 % (42-52); MEAN CORPUSCULAR HGB 31.9 PG (27.0-31.0); MEAN CORPUSCULAR HGB CONC 33.2 G/DL (33.0-37.0); MEAN CORPUSCULAR VOLUME 96.1 FL (80.0-94.0); MEAN PLATELET VOLUME 7.7 FL (7.4-10.4); PLATELET COUNT 154 /CUMM (130-400); RBC DISTRIBUTION WIDTH 12.7 % (11.5-14.5); RED BLOOD CELL CT 4.28 /CUMM (4.70-6.10); WHITE BLOOD CELL COUNT 7.7 /CUMM (4.8-10.8)
--- NOTE | 2016-11-05 10:15 | PN- General Surgery ---
See Addendum Subjective Subjective: 75-year-old male with perforated viscus, hospital day #7, currently being treated nonoperative. He has no pain, has not taking any pain medication, had a small formed bowel movement this morning, no nausea, no fever no flulike illness. He is tolerating fulls. Objective Vital Signs and I&Os Vital Signs Date Time Temp Pulse Resp B/P Pulse O2 O2 Flow FiO2 Ox Delivery Rate 11/05 0957 80 130/70 / 0957 80 130/70 / 0956 80 130/70 / 0705 98.3 81 20 134/72 95 Room Air 03/ 0000 94 Room Air / 2155 98.2 75 20 140/78 94 /05 2059 76 140/78 03/05 1737 97.9 82 20 156/86 93 Room Air 03/05 1616 98.2 80 18 130/68 93 03/05 1040 162/80 03/05 1039 162/70 03/05 1039 162/80 Intake & Output 11/05 1600 / 0800 / 0000 /05 1600 / 0800 03/05 0000 Intake Total 310 950 820 200 730 Output Total 325 300 Balance 310 950 820 -125 430 Intake, IV 260 150 100 200 10 Intake, Oral 50 800 720 720 Number 1 1 2 Bowel Movements Output, Urine 325 300 Physical Exam: Well-developed well-nourished no apparent distress. HEENT: Atraumatic, extraocular motion intact Neck: Supple, no lymphadenopathy Back: Nontender Respiratory: No respiratory distress clear to auscultation bilateral. Heart: Regular rate and rhythm no murmur Abdomen: Soft nontender nondistended, normal bowel sounds. Extremities: No edema, full range of motion Neuro: Alert and oriented x3 Psych: Mood affect normal, normal memory normal judgment. Skin: Warm and dry, no rash on exposed skin Results Last 48 Hours of Labs: Laboratory Tests 11/05 0650 Chemistry Sodium (137 - 145 mmol/L) 138 Potassium (3.5 - 5.1 mmol/L) 3.7 Chloride (98 - 107 mmol/L) 105 Carbon Dioxide (22 - 30 mmol/L) 27 Anion Gap (5 - 16) 6 BUN (9 - 20 mg/dL) 9 Creatinine (0.7 - 1.2 mg/dL) 0.7 Estimated GFR (>60 ml/min) > 60 BUN/Creatinine Ratio (7 - 25 %) 12.9 Hematology CBC w Diff NO MAN DIFF REQ WBC (4.8 - 10.8 /CUMM) 7.7 RBC (4.70 - 6.10 /CUMM) 4.28 L Hgb (14.0 - 18.0 G/DL) 13.6 L Hct (42 - 52 %) 41.1 L MCV (80.0 - 94.0 FL) 96.1 H MCH (27.0 - 31.0 PG) 31.9 H RDW (11.5 - 14.5 %) 12.7 Plt Count (130 - 400 /CUMM) 154 MPV (7.4 - 10.4 FL) 7.7 Gran % (42.2 - 75.2 %) 69.5 Lymphocytes % (20.5 - 51.1 %) 15.9 L Monocytes % (1.7 - 9.3 %) 8.8 Eosinophils % (0 - 5 %) 5.5 H Basophils % (0.0 - 2.0 %) 0.3 Absolute Granulocytes (1.4 - 6.5 /CUMM) 5.3 Absolute Lymphocytes (1.2 - 3.4 /CUMM) 1.2 Absolute Monocytes (0.10 - 0.60 /CUMM) 0.7 H Absolute Eosinophils (0.0 - 0.7 /CUMM) 0.4 Absolute Basophils (0.0 - 0.2 /CUMM) 0 PUBS MCHC (33.0 - 37.0 G/DL) 33.2 Assessment/Plan Assessment/Plan 75 yo male hospital day #7 with perf viscous, medically managed improving without any signs or symptoms at this time of progressing disease -Diet advanced to fulls plus ground beef and eggs -hep sc for dvt ppx -continue carafate/protonix iv at this time -continue antibiotics -encourage ambulation/incentive spirometer -Plan for possible discharge this evening or tomorrow if patient continues to improve. -Will discuss with Dr Hamilton Core Measures/Miscellaneous Venous Thromboembolism VTE Risk Factors: Age > 40, Surgery VTE Contraindications: No Contraindications VTE Diagnosis: No Beta Alessandro Is Beta Alessandro a Home Med? Yes If Yes, Was This Ordered Today? Yes Antibiotics Is Patient on Antibiotics? Yes If Yes: infection
[2016-11-05 14:05] VITALS: BP 120/70
[2016-11-05 22:00] VITALS: BP 120/70
[2016-11-06 06:28] VITALS: BP 122/70
--- NOTE | 2016-11-06 07:44 | PN- General Surgery ---
Subjective Subjective: He is tolerating fulls and had some eggs and ground beef yesterday. No nausea. No pain. Passing flatus and had another +bm this morning. Voiding well. Ambulating without difficulty. No dizziness. No shortnes of breath. No chest pains. Objective Vital Signs and I&Os Vital Signs Date Time Temp Pulse Resp B/P Pulse O2 O2 Flow FiO2 Ox Delivery Rate 11/07 627 97.4 69 20 122/70 93 Room Air 11/05 2244 120/80 11/05 2200 98.1 70 20 120/70 93 /06 1405 80.0 80 20 120/70 98 /06 0957 80 130/70 11/05 0957 80 130/70 / 0956 80 130/70 Intake & Output 11/06 0800 11/06 0000 11/05 1600 11/05 0800 / 0000 / 1600 Intake Total 600 450 650 310 950 820 Output Total Balance 600 450 650 310 950 820 Intake, IV 200 100 260 150 100 Intake, Oral 400 450 550 50 800 720 Number 1 1 Bowel Movements Physical Exam: General - alert & oriented x 3. comfortable. no acute distress. Lungs - clear bilaterally. no w/r/r. Cardiac - s1s2. reg. Abdomen - soft. active bowel sounds. nontender. Extremities - warm bilaterally. no c/c/e. calves soft and nontender b/l. Assessment/Plan Assessment/Plan 75 yo male hospital day #8 with perf viscous, improving with antibiotics and conservative diet tolerating fulls plus eggs & ground beef to complete 10 days of antibiotics. discharge with augmentin x 3 days. not requiring pain medication continue carafate / protonix hep sc - dvt ppx d/c home today d/w Core Measures/Miscellaneous Venous Thromboembolism VTE Risk Factors: Age > 40, Surgery VTE Contraindications: No Contraindications VTE Diagnosis: No Beta Alessandro Is Beta Alessandro a Home Med? Yes If Yes, Was This Ordered Today? Yes Antibiotics Is Patient on Antibiotics? Yes If Yes: infection
[2016-11-06 08:21] VITALS: BP 132/70
--- NOTE | 2016-11-06 08:30 | Patient Discharge Instructions ---
Discharge Instructions General Discharge Information You were seen/treated for: perforated gastric ulcer You had these procedures: iv antibiotics, bowel rest Watch for these problems: fever>101.3, increased pain Special Instructions: do not take nsaids or aspirin Diet Continue normal diet: No Recommended Diet: Full Liquids, soft foods Additional DIET Information: small, frequent liquid / soft meals Activity Full Activity/No Limits: Yes Activity Self Limited: Yes Acute Coronary Syndrome Inclusion Criteria At DC or during hospital stay patient has or had the following: ACS DIAGNOSIS No Discharge Core Measures Meds if any: Prescribed or Continued at Discharge Meds if any: NOT Prescribed or Continued at Discharge Congestive Heart Failure Inclusion Criteria At DC or during hospital stay patient has or had the following: CHF DIAGNOSIS No Discharge Core Measures Meds if any: Prescribed or Continued at Discharge Meds if any: NOT Prescribed or Continued at Discharge Cerebrovascular accident Inclusion Criteria At DC or during hospital stay patient has or had the following: CVA/TIA Diagnosis No Discharge Core Measures Meds if any: Prescribed or Continued at Discharge Meds if any: NOT Prescribed or Continued at Discharge Venous thromboembolism Inclusion Criteria VTE Diagnosis No VTE Type NONE VTE Confirmed by (Test) NONE Discharge Core Measures - Per Current guidelines, there needs to be overlap - treatment for the first 5 days of Warfarin therapy. - If discharged on Warfarin prior to 5 days of - overlap therapy, the patient will need to be - assessed for post discharge needs including - *Post discharge parental anticoagulation - *Warfarin and/or parental anticoagulation education - *Follow up date to check INR post discharge At least 5 days overlap therapy as Inpatient No Meds if any: Prescribed or Continued at Discharge Note: Overlap Therapy is Warfarin and Anticoagulant Meds if any: NOT Prescribed or Continued at Discharge
[2016-11-06] MEDS ORDERED: AUGMENTIN 875-1 EACH PO (08:35)
[2016-11-06] MEDS ORDERED: PROTONIX40 M3 PO (08:36)
[2016-11-06] MEDS ORDERED: SUCRALFATE1 GM/10 M1 PO (09:34)
--- NOTE | 2016-11-06 19:20 | Discharge Summary ---
Visit Information Visit Dates Admission Date: 10/30/16 Discharge Date: 11/06/16 Hospital Course Course Attending Physician: EDUARDA MARTINEZ,ARIA Harvey Primary Care Physician: MELL MARTINEZ,[facility] Course: Patient was admitted on with signs of intestinal perforation our impression was that he had a perforated peptic ulcer with minimal contamination and did not develop significant sepsis so we managed nonoperatively we started with an NG tube which we removed November 02 after he had a few loose bowel movements starting him on some clear liquids which we continued on the we advanced to full's and on the sixth yesterday we included some ground beef and aches overnight no fevers no increase in abdominal pain or nausea he was sore throughout the hospitalization but it never increased he also had one episode of some dyspnea on exertion walking in the hospital chest x-ray was negative and the dyspnea resolved on its own. Vital signs heart rate 69 temperature 97.4 blood pressure 122/70, respiratory rate 20 Constitutional: no acute distress no pain Eyes: sclera anicteric ENMT: moist mucous membranes Cardiovascular: S1-S2 no murmurs no peripheral edema Respiratory: clear to auscultation with normal respiratory effort and no intercostal retractions GI: abdomen soft nontender nondistended Extremities / lymphatics: free range of motion no peripheral edema Skin: no jaundice no rashes warm, nondiaphoretic Psychiatric: mood and affect are appropriate and alert and oriented to person place and time Labs electrolytes today reviewed all within normal limits is stable similar to previous on this admission no CBC today yesterday's white blood cell count 7.7 Patient has done well with nonoperative management and we will continue antibiotics as an outpatient following closely ultimately he will need an endoscopy to make sure of the etiology. He is to follow-up in the office in a few days or sooner if issues arise such as increased pain nausea vomiting fever or chills for example. His discharge medications will also include an antacid. Allergies: Coded Allergies: No Known Allergies (10/30/16) Disposition Summary Disposition Principal Diagnosis: Perforated peptic ulcer Additional Diagnosis: None other acute Discharge Disposition: home or self care Discharge Instructions General Discharge Information Code Status: Full Code Patient's Diet: As discussed above frequent small meals keep diet soft avoid large portions of high fiber Patient's Activity: No straining Follow-Up Instructions/Appts: As mentioned above follow-up in the office Medications at Discharge Discharge Medications: Stop taking the following medications: Aspirin (Ecotrin*) 325 MG TABLET. ORAL DAILY Aspirin (Aspirin*) 325 MG TABLET ORAL DAILY Continue taking these medications: Atorvastatin Calcium (Lipitor) 40 MG TABLET 1 Tablet ORAL DAILY Comments: Last Taken: 11/06/16 Time: 4 PM Metoprolol Succ XL (Toprol XL) 25 MG TAB 1 Tablet ORAL DAILY Comments: Last Taken: 11/06/16 Time: 9 AM Losartan Potassium (Cozaar) 25 MG TABLET 1 Tablet ORAL DAILY Comments: Last Taken: 11/06/16 Time: 9 AM Amlodipine (Norvasc) 2.5 MG TABLET 1 Tablet ORAL DAILY Comments: Last Taken: 11/06/16 Time: 9 AM Glucosamine HCl/Chondr Genao A Na (Glucosamine-Chondroitin Liq) 1,500 MG-1,200 MG/ 30 ML LIQUID 1 Capsule ORAL TWICE DAILY Comments: NOT GIVEN Multivitamin (Multi-Day Vitamins) 1 EACH TABLET 1 Tablet ORAL DAILY Comments: NOT GIVEN Vit A,C & E/Lutein/Minerals (Ocuvite With Lutein Tablet) 1,000-60-2 TABLET 1 Tablet ORAL DAILY Comments: NOT GIVEN Cetirizine HCl (Zyrtec) 10 MG TABLET 1 Tablet ORAL as needed for ALLERGIES Comments: Last Taken: 11/06/16 Time: 9 AM Ubidecarenone (Co Q-10) 100 MG CAPSULE 1 Capsule ORAL DAILY Comments: NOT GIVEN Nitroglycerin (Nitrostat) (Unknown Strength) TAB.SUBL Unknown Dose SUBLINGUAL As Directed as needed for CHEST PAIN Instructions: 1st sign of attack; may repeat every 5 minutes until relief; if pain persists after 3 tablets in 15 minutes, prompt medical att Comments: NOT GIVEN Start taking the following new medications: Sucralfate (Sucralfate) 1 GRAM/10 ML ORAL.SUSP 1 Gram ORAL EVERY 8 HOURS Qty = 90 No Refills Comments: Last Taken: 11/06/16 Time: 6 AM Amoxicillin/Potassium Clav (Augmentin 875-125 Tablet) 875 MG-125 MG TABLET 1 Tablet ORAL TWICE DAILY Qty = 6 No Refills Instructions: take with food. crushable Comments: NOT GIVEN Pantoprazole Sodium (Protonix) 40 MG TABLET. 1 Tablet ORAL DAILY Qty = 30 Refills = 2 Comments: Last Taken: 11/06/16 Time: 9 AM TAKE FIRST PO DOSE 11/07/16 Copies To: EDUARDA MARTINEZ,ARIA Harvey Attending MD Review Statement Documenting Attending: ARIA LERNER MD.
== END 2016-11-06 10:48 | DRG 380 ==
LOC: ENRESERVTM → ENRESERVDT → ERH 13:14 → 2NA 18:08 → ERHI 18:08 → ENPENDDIS 18:08 → 1NO 18:08 → 2NA 11-04 17:24
PROVIDERS: Emergency Medicine; Nurse Practitioner; Physician Assistant; Physician Assistant Surgical; ADMIT Surgery
DX: K25.5 Chronic or unspecified gastric ulcer with perforation (principal); K65.9 Peritonitis, unspecified; T39.395A Adverse effect of other nonsteroidal anti-inflammatory drugs [NSAID], initial encounter; Y92.009 Unspecified place in unspecified non-institutional (private) residence as the place of occurrence of the external cause
CPT/HCPCS: 1NSP; 2NASP; 36415; 74174; 81001; 82436; 93005; 93010; 96374; 96375; J1644; J2405; J7042